=== PATIENT | female | born 1960 | race Caucasian/White ===

== ENCOUNTER → 2020-07-15 | Outpatient (CLI) | payer OTHER ==
[~2020-07-15] MED LIST: AMARYL2 MG PO; JARDIANCE10 MG PO; TRULICITY1.5 MG/0.5 SUBQ; VITAMIN D3125 MC1 PO
== END ==
LOC: LAB 11:05
PROVIDERS: ATTEND Otolaryngology
DX: Z01.812 Encounter for preprocedural laboratory examination (principal); Z20.828 Contact with and (suspected) exposure to other viral communicable diseases

== ENCOUNTER 2020-07-18 06:11 | Observation (INO) | payer OTHER ==
[~2020-07-18] VITALS: Ht 165.1 cm; Wt 88.5 kg
[2020-07-18 06:42] VITALS: BP 155/62
--- NOTE | 2020-07-18 07:57 | EKG ---
[facility] [place] [address] ELECTROCARDIOGRAM REPORT Name: CORINNE JONES Room #: 150-4 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
[2020-07-18 12:14] VITALS: BP 158/69
--- NOTE | 2020-07-18 13:29 | NUR ---
Admitted pt. to floor at 1155. Pt. calm and cooperative. Pt. complains of 3/10 pain, but does not request medication at this time. Pt. vitals are stable. Will continue to monitor. Fall precautions in place.
[2020-07-18 16:33] VITALS: BP 149/79
[2020-07-18 20:04] VITALS: BP 149/81
[2020-07-19 00:06] VITALS: BP 121/57
--- NOTE | 2020-07-19 03:01 | NUR ---
ASSUMED PT CARE AROUND 1930. AXOX4. INDEPENDENT WITH ADLs. SURGICAL DRESSIGN ON NECK CDI. VSS. HOME MED GLIMEPERIDE REORDERED PER COVERING FOR . FSBS WAS 419. PAGED BACK NOW HIMS CONSULTED FOR MEDICAL MANAGEMENT. PT STARTED ON INSULIN LLS. SEEN BY HIMS PHYSICIAN AT BEDSIDE. NO S/S ACUTE DISTRESS NOTED OR REPORTED AT THIS TIME. WILL CONT TO MONITOR FOR ANY CHANGES IN CONDITION.
[2020-07-19 04:00] VITALS: BP 115/54
[2020-07-19 07:20] VITALS: BP 126/63
--- NOTE | 2020-07-19 08:30 | NUR ---
ASSESSMENT: CM REVIEWED CHART AND SPOKE WITH PATIENT. PT IS S/P PARATHYROIDECTOMY. PT REPORTS LIVING IN AN APT ALONE. PT REPORTS BEING FULLY INDEPENDENT WITH ADLS AND AMBULATION. PT HAS NO HX OF OR SNF. CM DISCUSSED ROLE. PT REPORTS NO NEEDS FROM CM. PT HAS ORDERS TO DISCHARGE HOME WITH NO NEEDS TODAY.
--- NOTE | 2020-07-19 11:16 | NUR ---
PT IS AOX4, VSS, DRESSING ON ANTERIOR NECK REMAINS CDI. PT RECEIVED TYLENOL AND ICE FOR PAIN. PT RATES PAIN IN NECK AREA 3/10. UP AD ANANT IN ROOM. IV D/C'D PT RECEIVED DISCHARGE HOME, DAUGHTER ON WAY TO PATTERN CARRIER. PT BELONGINGS ARE PACKED AND READY TO SEND HOME. WILL TRANSFER TO CAR VIA WHEELCHAIR.
[2020-07-19 11:18] VITALS: BP 126/63
--- NOTE | 2020-07-22 17:06 | PATH ---
[facility] [place] [address] PATHOLOGY RPT PROCEDURE Name: CORINNE JONES Room #: 447-P [facility] Devonte Corley#: [id number] Admission: 07/18/20 Date of : 58 Discharge: 07/19/20 Report #: [id number] Path Case #: [id number] [facility] Accession Number: [id number] . 01 Material submitted: . parathyroid gland - RIGHT INFERIOR PARATHYROID - FS. Modifiers: right, inferior . 01 Clinical history: . PRIMARY HYPERPARATHYROIDISM . 02 Frozen section diagnosis: . FROZEN SECTION DIAGNOSIS: Parathyroid "right inferior", excision: - Hypercellular parathyroid tissue (0.4 grams). . The findings are discussed with Dr. Dubon intraoperatively and a progress note is placed in the patient's chart. (JAIROK:bo; 07/19/2020) . FROZEN SECTION GROSS DESCRIPTION: Received fresh from the operating room labeled "parathyroid right inferior" is a 1.5 cm almond shaped reddish-angela piece of tissue which weighs 0.4 grams. The specimen is bisected. Half is frozen and submitted as cassette A1. The remaining half is submitted in cassette A2. (JAIROK:bo; 07/19/2020) . Frozen section performed at [facility] [place] [address]. SAEED/QTP . 02 Diagnosis: Parathyroid, right inferior parathyroid, parathyroidectomy: - Markedly hypercellular parathyroid, compatible with a parathyroid adenoma, 0.4 grams. . (IUV:mml; 07/22/2020) QLM 07/22/2020 1253 Local . 02 Electronically signed: . Valarie Randolph MD, Pathologist NPI- [id number] . 01 Gross description: . SEE FROZEN SECTION FOR GROSS DESCRIPTION /QTP 07/19/2020 0710 Local . 02 [place] [address] PATHOLOGY RPT PROCEDURE Name: CORINNE JONES Room #: 447-P TINA Corley#: [id number] Admission: 07/18/20 Date of : 58 Discharge: 07/19/20 Report #: [id number] Path Case #: [id number] Pathologist provided ICD-10: E21.0 . 02 CPT . 591601, [id number] Specimen Comment: A courtesy copy of this report has been sent to [phone] Specimen Comment: [phone] Specimen Comment: Report sent to Specimen Comment: Report sent to / DR FARIAS Performed at: [address], [place] [id number] MD Ethan Fagan MD Phone: [phone] Performed at: [address] [id number] MD Valarie Randolph MD Phone: [phone]
--- NOTE | 2020-07-23 16:11 | H ---
[facility] [place] [address] HISTORY AND PHYSICAL Name: CORINNE JONES Room #: 447-P [facility] Devonte Corley#: [id number] Admission: 07/18/20 Attend Phys: Kyle Dubon MD Discharge: 07/19/20 Date of : 58 Report #: [id number] THIS REPORT FOR: cc: Deja Mathew MD,Deja Dubon,Kyle Vora MD ~ CC: Kyle Mathew DATE OF SERVICE: 07/18/2020 CHIEF COMPLAINT: Hypercalcemia. HISTORY OF PRESENT ILLNESS: The patient is a 59-year-old female initially seen in 02/2020. She was sent to see me by her speaker mounter, Dr. Carlos Ramirez for concerns regarding persistent hypercalcemia. She had previously been followed by another speaker mounter for similar problem. She has remained fairly asymptomatic from her hypercalcemia. She has had at least 2 localizing studies, an ultrasound and a sestamibi scan that were unremarkable for localization. She had no other symptoms of hypercalcemia. After initial evaluation, she was found to have an elevated serum calcium and elevated parathyroid hormone level. I followed up with a 24-hour urine calcium score and a 4D SPECT for localizing study. These were accomplished and I discussed the results with her in March. She did have a very high urine calcium score, but the 4D SPECT CT was unremarkable. Given her persistent hypercalcemia, I found her to be an acceptable candidate for surgical exploration. I had Dr. Arnold Metz perform a high resolution ultrasound of the neck. She found no abnormalities within the thyroid, but he did find an approximately 8 x 6 mm hypoechoic ovoid nodule in the right lower thyroid thymic ligament. There was a blood vessel entering superiorly on the ventral surface of this mass. He found this was consistent likely with a right inferior parathyroid gland in the thymic ligament. Based on these findings, I discussed the treatment options with her including continued observation, or surgical exploration. The initial surgical exploration was certainly focused on the right inferior pole and the thyroid thymic ligament region. If the above mass found on ultrasound is indeed found to be a parathyroid, it will be removed and intraoperative parathyroid hormone level will be obtained to determine if drop is significant, if not 4-gland exploration will be necessary. She understands the risks involved with exploration including but not limited to anesthesia, bleeding, infection, surgical scarring, temporary or permanent hypocalcemia, the possibility of lack of correction of her hypercalcemia, and the possibility of injury to her vocal cord nerves. She agrees to proceed forward at this time. ALLERGIES TO MEDICATION: None. MEDICATIONS ON ADMISSION: Glimepiride 2 mg once a day, Jardiance 10 mg once a [address] [address] HISTORY AND PHYSICAL Name: CORINNE JONES Room #: 447-P [facility] Devonte Corley#: [id number] Admission: 07/18/20 Attend Phys: Kyle Dubon MD Discharge: 07/19/20 Date of : 58 Report #: [id number] day, metformin hydrochloride 1000 mg a day, Trulicity 1.5 mg/.05 mg injection. PAST MEDICAL HISTORY: Notable for the above-mentioned primary hyperparathyroidism and hypercalcemia, diabetes, and history of hypercholesterolemia. PAST SURGICAL HISTORY: Notable for adenotonsillectomy. FAMILY HISTORY: Notable for heart disease in her father and paternal grandfather. REVIEW OF SYSTEMS: Otherwise, negative for any GI, , cardiovascular or pulmonary issues. PHYSICAL EXAMINATION: VITAL SIGNS: Height of 5 feet 5 inches, weight of 190 pounds. HEENT: Unremarkable for any oral cavity, oropharyngeal or hypopharyngeal abnormalities aside from surgically absent tonsils. Palpation of the neck does not reveal any palpable thyromegaly or adenopathy. CHEST: Clear. CARDIOVASCULAR: Regular rate, regular rhythm. PREOPERATIVE LABORATORY VALUES: Had a serum calcium of 11.2 with an albumin of 4.4 and a PTH of 111. These tests were in 10/2019. ASSESSMENT: History of primary hypercalcemia with hyperparathyroidism with possible localizing area to the right lower/inferior parathyroid. PLAN: Will be for neck exploration. <ELECTRONICALLY SIGNED> By: Kyle Dubon MD 07/23/20 [phone] 16 Kyle Dubon MD /nt
--- NOTE | 2020-07-23 16:11 | O ---
[facility] [place] [address] OPERATIVE REPORT Name: CORINNE JONES Room #: 447-P [facility] Devonte Corley#: [id number] Admission: 07/18/20 Attend Phys: Kyle Dubon MD Discharge: 07/19/20 Date of : 58 Report #: [id number] THIS REPORT FOR: cc: Deja Mathew MD,Deja Dubon,Kyle Vora MD ~ CC: Kyle Mathew DATE OF SERVICE: 07/18/2020 PREOPERATIVE DIAGNOSIS: Primary hyperparathyroidism. POSTOPERATIVE DIAGNOSIS: Primary hyperparathyroidism. PROCEDURE: Neck exploration for parathyroid adenoma. SURGEON: Kyle Dubon MD SOLE LAYER: Dr. Bill Acharya. ANESTHESIA: General endotracheal. INDICATIONS: NIMS tube. FINDINGS: There was a large 1.5 x 1 cm fleshy mass in the right thyrothymic ligament. This was positive for thyroid hyperplasia. After removal, PTH dropped significantly. TECHNIQUE: After obtaining consent, she was brought to the operating suite, appropriate timeout was performed. General oral endotracheal anesthesia was obtained with the NIMS tube. A ground and probe were placed, leads were placed and the NIMS was functioning normally at the beginning and end of the case. The neck was prepped and draped in usual sterile fashion. 5 mL of 1% Xylocaine and 1:100,000 epinephrine was injected in the anticipated collar incision area of the neck. A collar incision was made through skin, subcutaneous tissue and platysma. The midline raphe was divided with the use of blunt dissection and the LigaSure exposing the thyroid isthmus. I then bluntly dissected away the right strap muscles, exposing the right thyroid lobe and the lateral border. Inferior to the right thyroid inferior pole, there was found to be a violaceous fleshy mass that was dissected free from the surrounding thyroid. Bipolar cautery was used to remove this carefully. This was sent for frozen section with pathology returning hypercellular parathyroid gland. PTH was drawn at that time. We then explored the remainder of the right side, identifying the right recurrent laryngeal nerve as well as the right superior parathyroid that [address] [address] OPERATIVE REPORT Name: CORINNE JONES Room #: 447-P [facility] Devonte Corley#: [id number] Admission: 07/18/20 Attend Phys: Kyle Dubon MD Discharge: 07/19/20 Date of : 58 Report #: [id number] appeared to be in its normal anatomic location and appeared to be healthy. PTH came back from a preop of 140 range to 12.5. At this point, closure was obtained after thoroughly irrigating the neck. Closure was with 3-0 chromic suture followed by Dermabond. She was then allowed to lighten from anesthesia and taken to recovery room in stable condition. ESTIMATED BLOOD LOSS: 10 mL <ELECTRONICALLY SIGNED> By: Kyle Dubon MD 07/23/20 1611 0940 1016 Kyle Dubon MD /marcio
== END 2020-07-19 16:22 | disposition home or self-care (01) ==
LOC: TBA 06:11 → OR 06:11 → TBA 06:14 → OR 06:14 → 4S 09:48 → OR 15:44 → 4S 07-19 16:22
PROVIDERS: ADMIT Otolaryngology; ATTEND Otolaryngology
DX: E21.0 Primary hyperparathyroidism (principal); E11.9 Type 2 diabetes mellitus without complications; G47.33 Obstructive sleep apnea (adult) (pediatric); E83.52 Hypercalcemia; E78.00 Pure hypercholesterolemia, unspecified; Z79.899 Other long term (current) drug therapy
CPT/HCPCS: 50010; 50101; 62110; 62900; 70005